=== PATIENT | female | born 1960 | race Caucasian/White ===

== ENCOUNTER → 2019-08-21 | Outpatient (CLI) | payer BC ==
--- NOTE | 2019-08-21 15:01 | PCVCIMAG ---
APPROVED REPORT Study performed: 08/21/2019 13:56:11 EXAM: Comprehensive 2D, Doppler, and color-flow Echocardiogram Patient Location: Echo lab Status: routine BSA: 1.72 HR: 58 bpmBP: 140/80 mmHg Rhythm: NSR Other Information Study Quality: Good Risk Factors: Cardiac Risk Factors: HTN, Hyperlipidemia Indications Hypertension/HDD Abnormal ekg 2D Dimensions IVSd: 14.87 (7-11mm)LVOT Diam: 22.39 (18-24mm) LVDd: 42.71 mm PWd: 11.29 (7-11mm)Ascending Ao: 39.88 (22-36mm) LVDs: 26.89 (25-40mm) Left Atrium: 26.28 (27-40mm) Aortic Root: 34.09 mm LV Single Plane 4CH: 65.92 % LV Single Plane 2CH: 65.33 % Biplane EF: 65.2 % Volumes Left Atrial Volume (Systole) Single Plane 4CH: 39.44 mLSingle Plane 2CH: 39.59 mL LA ESV Index: 25.00 mL/m2 Aortic Valve AoV Peak Arturo.: 1.80 m/s AO Peak Gr.: 12.98 mmHgLVOT Max P.02 mmHg LVOT Max V: 1.12 m/s AUGUSTUS Vmax: 2.45 cm2 Mitral Valve E/A Ratio: 32.5 MV E Max Arturo.: 0.65 m/s MV A Arturo.: 0.02 m/s TDI E/Lateral E': 7.22E/Medial E': 7.22 Medial E' Arturo.: 0.09 m/s Lateral E' Arturo.: 0.09 m/s Pulmonary Vein P Vein S: 0.50 m/sP Vein A: 0.41 m/s P Vein D: 0.72 m/sP Vein A Dur.: 121.1 msec P Vein S/D Ratio: 0.69 Tricuspid Valve TR Peak Arturo.: 1.87 m/s TR Peak Gr.: 14.05 mmHg Left Ventricle The left ventricle is normal size. There is normal LV segmental wall motion. There is normal left ventricular wall thickness. Left ventricular systolic function is normal. The left ventricular ejection fraction is within the normal range. LVEF is >55%. Right Ventricle The right ventricle is normal size. The right ventricular systolic function is normal. Atria The left atrium size is normal. The right atrium size is normal. Aortic Valve The aortic valve is normal in structure. No aortic regurgitation is present. There is no aortic valvular stenosis. Mitral Valve The mitral valve is normal in structure. Mild mitral regurgitation. No evidence of mitral valve stenosis. Tricuspid Valve The tricuspid valve is normal in structure. Trace tricuspid regurgitation. Pulmonary artery pressure 21mmHg. Pulmonic Valve The pulmonary valve is normal in structure. There is no pulmonic valvular regurgitation. Great Vessels The aortic root is normal in size. IVC is normal in size and collapses >50% with inspiration. Pericardium There is no pericardial effusion. <Conclusion> The left ventricle is normal size. LVEF is >55%. The aortic valve is normal in structure. The mitral valve is normal in structure. Mild mitral regurgitation. The tricuspid valve is normal in structure. Trace tricuspid regurgitation. Pulmonary artery pressure 21mmHg. The pulmonary valve is normal in structure. There is no pericardial effusion.
== END | disposition home or self-care (01) ==
LOC: PCVCIMAG 14:41
PROVIDERS: ATTEND Internal Medicine
DX: I34.0 Nonrheumatic mitral (valve) insufficiency (principal); I10 Essential (primary) hypertension; R94.31 Abnormal electrocardiogram [ECG] [EKG]; I45.2 Bifascicular block; R00.1 Bradycardia, unspecified
CPT/HCPCS: 93306